=== PATIENT | male | born 1960 | race African-American/Black ===

== ENCOUNTER 2022-09-02 12:23 | Inpatient (IN) | payer OTHER ==
[2022-09-02 13:27] VITALS: BMI 36.2
[2022-09-02] MEDS ORDERED: ACETAMINOPHEN 325 MG TABLET (FP) PO PRN (15:13)
[2022-09-02] MEDS ORDERED: MAG HYDROX/AL HYDROX/SIMETH 30 ML UNIT-DOSE CUP PO PRN (15:13)
[2022-09-02] MEDS ORDERED: BISMUTH SUBSALICYLATE 524 MG/30 ML PO PRN (15:13)
[2022-09-02] MEDS ORDERED: NALOXONE HCL (KLOXXADO) 8 MG SPRAY NS PRN (15:13)
[2022-09-02] MEDS ORDERED: DICYCLOMINE HCL 10 MG CAPSULE PO PRN (15:13)
[2022-09-02] MEDS ORDERED: BENZOCAINE/MENTHOL (CHLORASEPTIC ) LOZENGE MM PRN (15:13)
[2022-09-02] MEDS ORDERED: MAGNESIUM HYDROX 2400MG/30ML ORAL SUSPENSION 30 ML CUP PO PRN (15:13)
[2022-09-02] MEDS ORDERED: LOPERAMIDE HCL 2 MG CAPSULE PO PRN (15:13)
[2022-09-02] MEDS ORDERED: ONDANSETRON *ODT* 4 MG TABLET SL PRN (15:13)
[2022-09-02] MEDS: IBUPROFEN 400 MG TABLET (FP) PO PRN (18:18)
[2022-09-02] MEDS: METHOCARBAMOL 500 MG TABLET PO PRN (18:18)
[2022-09-02] MEDS: INSULIN SLIDING SCALE (NOVOLOG) 1 VIAL SQ SCH ×2 (18:25→23:20)
[2022-09-02] MEDS: hydrOXYzine PAMOATE 25 MG CAPSULE (FP) PO PRN (18:27)
[2022-09-02] MEDS: THIAMINE HCL 100 MG TABLET (FP) PO SCH (23:20)
[2022-09-02] MEDS: MELATONIN 5 MG TABLETS PO SCH (23:20)
[2022-09-03] MEDS: INSULIN SLIDING SCALE (NOVOLOG) 1 VIAL SQ SCH ×4 (07:00→22:55)
[2022-09-03] MEDS ORDERED: methaDONE HCL 10 MG TABLET (FOR DETOX USE ONLY) PO ONE (09:29)
[2022-09-03] MEDS: hydrOXYzine PAMOATE 25 MG CAPSULE (FP) PO PRN (10:40)
[2022-09-03] MEDS: PRENATAL VITAMINS W/ FOLIC ACID TABLET (FP) PO SCH (10:40)
[2022-09-03] MEDS: cloNIDine HCL 0.1 MG TABLET PO PRN (10:40)
[2022-09-03] MEDS: METHOCARBAMOL 500 MG TABLET PO PRN (10:40)
[2022-09-03] MEDS ORDERED: methaDONE HCL 10 MG TABLET PO ONE (11:25)
[2022-09-03 13:03] LABS: HEMATOCRIT 34.6 % (35.4-49); HEMOGLOBIN 11.3 GM/dL (11.7-16.9); MCH 23.4 pg (25.7-33.7); MCHC 32.6 g/dl (32.0-35.9); MEAN CELL VOLUME 71.8 fl (80-96); MEAN PLT VOLUME 9.1 fl (7.5-11.1); PLATELET COUNT 213 10^3/uL (134-434); RBC 4.81 M/mm3 (4.00-5.60); RDW 16.4 % (11.9-15.9); WHITE BLOOD COUNT 8.1 K/mm3 (4.0-10.0)
[2022-09-03 13:17] LABS: CALCIUM 9.2 mg/dL (8.5-10.1)
[2022-09-03 13:18] LABS: ALBUMIN 3.4 g/dl (3.4-5.0); BLOOD UREA NITROGEN 18.1 mg/dL (7-18)
[2022-09-03 13:20] LABS: CREATININE 1.2 mg/dL (0.55-1.3)
[2022-09-03 13:22] LABS: BILIRUBIN,TOTAL 0.5 mg/dL (0.2-1); TOT PROT 7.3 g/dl (6.4-8.2)
[2022-09-03] MEDS: MELATONIN 5 MG TABLETS PO SCH (22:54)
[2022-09-03] MEDS: THIAMINE HCL 100 MG TABLET (FP) PO SCH (22:54)
[2022-09-03] MEDS ORDERED: ALBUTEROL SO4 HFA INHALER IH PRN (23:29)
[2022-09-04] MEDS: INSULIN SLIDING SCALE (NOVOLOG) 1 VIAL SQ SCH ×4 (06:24→22:18)
[2022-09-04] MEDS: METHOCARBAMOL 500 MG TABLET PO PRN ×2 (10:32→22:17)
[2022-09-04] MEDS: PRENATAL VITAMINS W/ FOLIC ACID TABLET (FP) PO SCH (10:32)
[2022-09-04] MEDS: cloNIDine HCL 0.1 MG TABLET PO PRN (10:32)
[2022-09-04] MEDS: hydrOXYzine PAMOATE 25 MG CAPSULE (FP) PO PRN ×2 (10:32→22:17)
[2022-09-04] MEDS: amLODIPine BESYLATE 5 MG TABLET (FP) PO SCH (15:00)
[2022-09-04] MEDS: MELATONIN 5 MG TABLETS PO SCH (22:16)
[2022-09-04] MEDS: NICOTINE 10 MG CARTRIDGE (INHALER) IH PRN (22:17)
[2022-09-04] MEDS: THIAMINE HCL 100 MG TABLET (FP) PO SCH (22:17)
[2022-09-05] MEDS: IBUPROFEN 600 MG TABLET (FP) PO PRN (02:21)
[2022-09-05] MEDS: METHOCARBAMOL 500 MG TABLET PO PRN ×3 (05:14→22:24)
[2022-09-05] MEDS: IBUPROFEN 400 MG TABLET (FP) PO PRN (05:14)
[2022-09-05] MEDS: INSULIN SLIDING SCALE (NOVOLOG) 1 VIAL SQ SCH ×4 (07:29→22:20)
[2022-09-05] MEDS ORDERED: methaDONE HCL 10 MG TABLET (FOR DETOX USE ONLY) PO ONE (10:00)
[2022-09-05] MEDS: hydrOXYzine PAMOATE 25 MG CAPSULE (FP) PO PRN (10:05)
[2022-09-05] MEDS: amLODIPine BESYLATE 5 MG TABLET (FP) PO SCH (10:05)
[2022-09-05] MEDS: PRENATAL VITAMINS W/ FOLIC ACID TABLET (FP) PO SCH (10:05)
[2022-09-05] MEDS: ACETAMINOPHEN 325 MG TABLET (FP) PO PRN (10:06)
[2022-09-05] MEDS: diazePAM 5 MG TABLET PO PRN ×2 (12:45→22:24)
[2022-09-05] MEDS: metFORMIN HCL 500 MG TABLET (FP) PO SCH (17:28)
[2022-09-05] MEDS: MELATONIN 5 MG TABLETS PO SCH (22:20)
[2022-09-05] MEDS: THIAMINE HCL 100 MG TABLET (FP) PO SCH (22:20)
[2022-09-06] MEDS: IBUPROFEN 600 MG TABLET (FP) PO PRN (00:43)
[2022-09-06] MEDS: diazePAM 5 MG TABLET PO PRN ×3 (05:34→22:11)
[2022-09-06] MEDS: METHOCARBAMOL 500 MG TABLET PO PRN ×3 (05:37→22:12)
[2022-09-06] MEDS: metFORMIN HCL 500 MG TABLET (FP) PO SCH ×2 (07:05→17:29)
[2022-09-06] MEDS: INSULIN SLIDING SCALE (NOVOLOG) 1 VIAL SQ SCH ×4 (07:05→22:08)
[2022-09-06] MEDS: PRENATAL VITAMINS W/ FOLIC ACID TABLET (FP) PO SCH (10:01)
[2022-09-06] MEDS: hydrOXYzine PAMOATE 25 MG CAPSULE (FP) PO PRN (10:01)
[2022-09-06] MEDS: amLODIPine BESYLATE 5 MG TABLET (FP) PO SCH (10:01)
[2022-09-06] MEDS ORDERED: INSULIN (NOVOLOG) ASPART 100 UNITS/ML 10ML VIAL ONE (16:50)
[2022-09-06] MEDS: MELATONIN 5 MG TABLETS PO SCH (22:08)
[2022-09-06] MEDS: THIAMINE HCL 100 MG TABLET (FP) PO SCH (22:11)
[2022-09-06] MEDS: ACETAMINOPHEN 325 MG TABLET (FP) PO PRN (22:13)
[2022-09-07] MEDS: IBUPROFEN 400 MG TABLET (FP) PO PRN (02:55)
[2022-09-07] MEDS: diazePAM 5 MG TABLET PO PRN ×4 (05:35→23:54)
[2022-09-07] MEDS: metFORMIN HCL 500 MG TABLET (FP) PO SCH ×2 (06:58→16:53)
[2022-09-07] MEDS: INSULIN SLIDING SCALE (NOVOLOG) 1 VIAL SQ SCH ×4 (07:02→22:10)
[2022-09-07] MEDS ORDERED: methaDONE HCL 10 MG TABLET (FOR DETOX USE ONLY) PO ONE (10:00)
[2022-09-07] MEDS: PRENATAL VITAMINS W/ FOLIC ACID TABLET (FP) PO SCH (10:01)
[2022-09-07] MEDS: amLODIPine BESYLATE 5 MG TABLET (FP) PO SCH (10:01)
[2022-09-07] MEDS: METHOCARBAMOL 500 MG TABLET PO PRN ×2 (10:01→22:11)
[2022-09-07] MEDS: IBUPROFEN 600 MG TABLET (FP) PO PRN (10:04)
[2022-09-07] MEDS ORDERED: INSULIN (NOVOLOG) ASPART 100 UNITS/ML 10ML VIAL ONE (16:50)
[2022-09-07] MEDS: NICOTINE 10 MG CARTRIDGE (INHALER) IH PRN (18:17)
[2022-09-07 21:09] VITALS: RESP 17; TEMP 97.1
[2022-09-07] MEDS: THIAMINE HCL 100 MG TABLET (FP) PO SCH (22:09)
[2022-09-07] MEDS: MELATONIN 5 MG TABLETS PO SCH (22:12)
[2022-09-08 06:02] VITALS: BP 141/74; PULSE 76
[2022-09-08] MEDS: metFORMIN HCL 500 MG TABLET (FP) PO SCH (07:34)
[2022-09-08] MEDS: INSULIN SLIDING SCALE (NOVOLOG) 1 VIAL SQ SCH (08:03)
== END 2022-09-08 08:32 | disposition home or self-care (01) | DRG 897 ==
LOC: YASAS 12:23 → Y6N 16:53
PROVIDERS: ADMIT Allergy & Immunology; ATTEND Surgery
PROC: HZ2ZZZZ Detoxification Services for Substance Abuse Treatment (ICD-10-PCS; principal; 2022-09-02)
DX: F11.23 Opioid dependence with withdrawal (principal); F14.10 Cocaine abuse, uncomplicated; F17.210 Nicotine dependence, cigarettes, uncomplicated; I10 Essential (primary) hypertension; J45.909 Unspecified asthma, uncomplicated; E11.9 Type 2 diabetes mellitus without complications; Z79.84 Long term (current) use of oral hypoglycemic drugs; E66.9 Obesity, unspecified; Z68.36 Body mass index [BMI] 36.0-36.9, adult; R05.8 Other specified cough; R06.02 Shortness of breath; R76.8 Other specified abnormal immunological findings in serum; Z86.19 Personal history of other infectious and parasitic diseases; Z99.89 Dependence on other enabling machines and devices
CPT/HCPCS: 36415; 71045-TC-FY; 80053; 82962; 85027; 86593; 86780; 87811; C9803-CS; U0003; U0005